=== PATIENT | female | born 1960 | race Caucasian/White ===

== ENCOUNTER 2020-01-22 14:32 | Outpatient (CLI) | payer OTHER, SELFPAY ==
--- NOTE | ~2020-01-22 | MM_ITS ---
EXAMINATION: MM screening [facility] BI w wojciech HISTORY: Screening mammogram TECHNIQUE: Craniocaudal and mediolateral oblique 3-D tomosynthesis images were obtained and synthetic 2-D images were generated. CAD analysis was submitted and interpreted. COMPARISON: Comparison to multiple prior studies sequentially, with oldest reviewed study dated 04/09. BREAST PARENCHYMAL COMPOSITION: The breasts are extremely dense, which lowers the sensitivity of mamm ography. FINDINGS: There is no evidence of suspicious mass, calcification, or architectural distortion to sugg est malignancy in either breast. There has been no suspicious interval change. IMPRESSION: 1. No mammographic evidence of malignancy. 2. Recommend routine screening mammography in one year. BI-RADS Category 1: Negative Reviewed, dictated and finalized at location A.
== END 2020-01-22 14:33 | disposition home or self-care (01) ==
PROVIDERS: PCP Internal Medicine; Visit Provider Obstetrics & Gynecology
DX: Z12.31 Encounter for screening mammogram for malignant neoplasm of breast (principal)
CPT/HCPCS: 77063; 77067

== ENCOUNTER 2020-02-18 14:02 | Outpatient (CLI) | payer OTHER, SELFPAY ==
--- NOTE | ~2020-02-18 | DEXA_ITS ---
Bone Density Report Name: Mallory Stubbs Age: 59 Sex: Female Ethnicity: White Date of : 1960 Indication: postmenopausal; height loss; Referring Provider: Jose Merrill Study: Bone densitometry was performed. Exam Date: February 18, 2020 Accession number: [id number] Bone Density: Region BMD T-score Z-score Classification AP Spine (L1-L4) 0.866 -1.6 -0.2 Osteopenia Femoral Neck (Left) 0.664 -1.7 -0.3 Osteopenia Total Hip (Left) 0.778 -1.3 -0.3 Osteopenia Total Hip Bilateral Avg 0.766 -1.4 -0.5 Osteopenia Femoral Neck (Right) 0.682 -1.5 -0.2 Osteopenia Total Hip (Right) 0.753 -1.5 -0.6 Osteopenia World Health Organization criteria for BMD impression classify patients as: Normal (T-score at or above -1.0), Osteopenia (T-score between -1.0 and -2.5), or Osteoporosis (T-score at or below -2.5). 10-year Fracture Risk(1): Major Osteoporotic Fracture 7.5% Hip Fracture 0.8% Reported Risk Factors: [place] (), Neck BMD=0.664, BMI=19.9 (1) FRAX(R) Version 3.08. Fracture probability calculated for an untreated patient. Fracture probability may be lower if the patient has received treatment. Clinical Information Provided by Patient: Has used the following medications: Vitamin D, Calcium Patient maximum height was 67.5 Menopause Age: 47 Drinks caffeinated beverages Onset of menses at age 13 Number of children 0 Impression: The patient has low bone mass, based on the Left Femoral Neck T-score. The patient has an estimated ten-year risk of hip fracture of 0.8% and an estimated ten-year risk of major fracture of 7.5%, based on the WHO FRAX algorithm. Discussion: BONE DENSITY IS LOW AT ONE OR MORE SKELETAL SITES. This patient's lowest T-score is low at one or more skeletal sites. It meets the World Health Organization's (WHO) criteria for ?low bone mass? (T-score between -1.0 and -2.5). The patient's 10-year risk of fracture as calculated by FRAX is less than the threshold where pharmacological therapy is recommended by the National Osteoporosis Foundation (NOF). However, all treatment decisions require clinical judgment and consideration of individual patient factors, including patient preferences, comorbidities, previous drug use, risk factors not captured in the FRAX model (e.g., frailty, falls, vitamin D deficiency, increased bone turnover, interval significant decline in bone density) and possible under or overestimation of fracture risk by FRAX. The patient should follow a healthful lifestyle (good nutrition with adequate calcium and vitamin D, and appropriate weight-bearing exercise). Follow-Up: Consider repeating this study in 2 to 3 years to reassess this patient's status, or sooner if there is some new clinical indication. Reported by: PIPPA on 02/18/2020 2:34:00 PM.
== END 2020-02-18 14:03 | disposition home or self-care (01) ==
PROVIDERS: PCP Internal Medicine; Visit Provider Internal Medicine
DX: Z13.820 Encounter for screening for osteoporosis (principal); M85.88 Other specified disorders of bone density and structure, other site; M85.852 Other specified disorders of bone density and structure, left thigh; M85.851 Other specified disorders of bone density and structure, right thigh
CPT/HCPCS: 77080

== ENCOUNTER 2020-12-26 15:28 | Outpatient (CLI) | payer OTHER, SELFPAY | END 2020-12-26 15:29 | disposition home or self-care (01) | LOC: ANHCOVIDVC 15:29 | PROVIDERS: PCP Internal Medicine | DX: Z23 Encounter for immunization (principal) | CPT/HCPCS: 0001A; 91300 ==

== ENCOUNTER 2021-01-16 15:24 | Outpatient (CLI) | payer OTHER, SELFPAY | END 2021-01-16 15:25 | disposition home or self-care (01) | LOC: ANHCOVIDVC 15:25 | PROVIDERS: PCP Internal Medicine | DX: Z23 Encounter for immunization (principal) | CPT/HCPCS: 0002A; 91300 ==

== ENCOUNTER → 2021-03-10 10:41 | Outpatient (CLI) | payer OTHER, SELFPAY ==
--- NOTE | ~2021-03-10 | US_ITS ---
EXAMINATION: US pelvic complete w TV EXAM DATE: 03/10/2021 11:05 INDICATION: Postmenopausal bleeding TECHNIQUE: Pelvic transabdominal and transvaginal sonogram was performed. There are multiple graysca le and Doppler images available for interpretation. There is no prior study for comparison. FINDINGS: Uterus measures 6.6 x 2.5 x 3.4 cm, and is morphologically normal. There is fluid within t he endometrial fundus and endometrium at this location measuring about 6 mm, and there is hypoechoic region, fluid suspected within the lower uterine segment endometrial canal up to about 8 mm in thickn ess. There is no free pelvic fluid. Right adnexa: The ovary is not identified. There is no adnexal mass. Left adnexa: The ovary is not identified. There is no adnexal mass. IMPRESSION: Endometrial, lower uterine segment fluid. Endometrial measurement upper limits of normal. If symptoms persist consider histologic correlation. Reviewed, dictated and finalized at location A. IMPRESSION: Endometrial, lower uterine segment fluid. Endometrial measurement u pper limits of normal. If symptoms persist consider histologic correlation.
== END ==
PROVIDERS: PCP Internal Medicine; Visit Provider Obstetrics & Gynecology
DX: N95.0 Postmenopausal bleeding (principal)
CPT/HCPCS: 76830; 76856

== ENCOUNTER 2021-03-11 09:48 | Outpatient (CLI) | payer OTHER, SELFPAY ==
--- NOTE | ~2021-03-11 | MM_ITS ---
EXAMINATION: MM screening [facility] BI w wojciech HISTORY: Screening mammogram TECHNIQUE: Craniocaudal and mediolateral oblique 3-D tomosynthesis images were obtained and synthetic 2-D images were generated. CAD analysis was submitted and interpreted. COMPARISON: 01/22/2020, 11/22/2018, 09/07/2017 BREAST PARENCHYMAL COMPOSITION: The breasts are extremely dense, which lowers the sensitivity of mamm ography. FINDINGS: There is no evidence of suspicious mass, calcification, or architectural distortion to sugg est malignancy in either breast. There has been no suspicious interval change. IMPRESSION: 1. No mammographic evidence of malignancy. 2. Recommend routine screening mammography in one year. BI-RADS Category 1: Negative Reviewed, dictated and finalized at location A.
== END 2021-03-11 09:49 | disposition home or self-care (01) ==
LOC: ANHIMG 09:50
PROVIDERS: PCP Internal Medicine; Visit Provider Obstetrics & Gynecology
DX: Z12.31 Encounter for screening mammogram for malignant neoplasm of breast (principal)
CPT/HCPCS: 77063; 77067

== ENCOUNTER 2021-04-01 03:16 | Day surgery (SDC) | payer OTHER, SELFPAY ==
[2021-03-25 09:53] VITALS: BMI 19.6
--- NOTE | 2021-04-01 12:09 | PM.IMHP ---
H&P: HPI History of Present Illness Date/Time: 04/01/21 12:09 61-year-old 0 female presents for 1 episode of vaginal bleeding 2 months ago. At that time ultrasound was performed which showed abnormality in the cavity but she has had no further bleeding. Options were discussed regarding monitoring with repeat imaging versus tissue sampling and we with the proceeding with tissue sampling. Chief Complaint: Postmenopausal bleeding Review of Systems Review of Systems: All systems reviewed & are unremarkable except as noted in HPI and below PMFSH Past Medical History Medical History (Updated 04/01/21 @ 12:12 by Shan Graves MD) Arthritis Goiter Thyroid disease Surgical History Surgical History H/O thyroidectomy Family History Family History Mother Patient's mother is Heart disease Father Patient's father is Heart disease Social History Social History Smoking status: Never smoker Second hand tobacco smoke exposure: No Alcohol intake: current Substance use: never Living arrangements: with family Sexual Orientation (if Verbalized by the Patient): Straight or Heterosexual Spiritual care concerns: No Meds Home Medications and Allergies Home Medications Medication Instructions Recorded Confirmed Type estradiol-norethindrone acet 1 1 tablet PO DAILY 05/19/20 03/25/21 History mg-0.5 mg tablet levothyroxine 50 mcg capsule 50 mcg PO DAILY 05/19/20 03/25/21 History meloxicam 15 mg tablet 15 mg PO DAILY #90 tablet 05/19/20 03/25/21 Rx calcium citrate-vitamin D3 1 tablet PO BID 03/25/21 03/25/21 History [Calcium Citrate + D] multivit with min-folic acid 282 tablet PO DAILY 03/25/21 03/25/21 History [Adult One Daily Gummies] Allergies Allergy/AdvReac Type Severity Reaction Status Date / Time No Known Allergies Allergy Unverified 05/19/20 14:38 Exam Const: General: cooperative and healthy appearing Resp: Effort & Inspection: normal respiratory effort Auscultation: clear to auscultation bilaterally Cardio: Rate: regular rate GI: Inspection: normal to inspection : Speculum Exam - Vagina: normal appearance of the vagina Speculum Exam - Cervix: normal appearance of the cervix Bimanual exam- vagina & uterus: normal bimanual exam Bimanual Exam- Adnexa, other: normal adnexae Assessment and Plan Assessment and plan (1) Postmenopausal bleeding: Code(s): N95.0 - Postmenopausal bleeding Status: Acute Additional Plan proceed with hysteroscopy and tissue sampling.
--- NOTE | 2021-04-01 12:12 | WPDHPUPDATE1 ---
History and Physical Update Update Date/Time: 04/01/21 12:12 History and Physical has been reviewed, including an updated exam of the patient. There are NO changes in the patient's condition. Risks, benefits, and alternatives have been discussed and questions answered. Patient agrees to proceed with procedure.
[2021-04-01] MEDS: LACTATED RINGERS 1,000 ML 30 ML IV CONT (12:54)
[2021-04-01 12:55] VITALS: BP 147/79; PULSE 92; RESP 14; TEMP 36.8; O2SAT 100; BMI 19.5
[2021-04-01] MEDS: ACETAMINOPHEN 500 MG TABLET 1000 MG PO (12:55)
--- NOTE | 2021-04-01 13:37 | WPDANESEPPF ---
Anes - Initial Pre Proc Eval Procedure: Operation Date: 04/01/21 14:00 Proposed Procedures p Hysteroscopy, Dilation and Curettage - Shan Graves MD Date/Time: 04/01/21 13:37 Surgeon: Shan Graves MD Pre Op Diagnosis: post menopausal bleeding Patient Data Age: 61 Gender: F Height: 1.7 m Weight: 56.7 kg Last Vital Signs Temp 36.8 C 04/01/21 12:55 Pulse 92 04/01/21 12:55 Resp 14 04/01/21 12:55 BP 147/79 H 04/01/21 12:55 Pulse Ox 100 04/01/21 12:55 Allergies Allergy/AdvReac Type Severity Reaction Status Date / Time No Known Allergies Allergy Verified 04/01/21 12:37 Home Medications Medication Instructions Recorded Confirmed Type estradiol-norethindrone acet 1 1 tablet PO DAILY 05/19/20 03/25/21 History mg-0.5 mg tablet levothyroxine 50 mcg capsule 50 mcg PO DAILY 05/19/20 04/01/21 History meloxicam 15 mg tablet 15 mg PO DAILY #90 tablet 05/19/20 03/25/21 Rx calcium citrate-vitamin D3 1 tablet PO BID 03/25/21 03/25/21 History [Calcium Citrate + D] multivit with min-folic acid 282 tablet PO DAILY 03/25/21 03/25/21 History [Adult One Daily Gummies] Patient hx anesthesia problems: none Family hx anesthesia problems: none PMFSH Past Medical History Medical History Arthritis Goiter Thyroid disease Surgical History Surgical History H/O thyroidectomy Family History Family History Mother Patient's mother is Heart disease Father Patient's father is Heart disease Social History Social History Smoking status: Never smoker Second hand tobacco smoke exposure: No Alcohol intake: current Substance use: never Living arrangements: with family Sexual Orientation (if Verbalized by the Patient): Straight or Heterosexual Spiritual care concerns: No Anes - Eval Final PreProcedure Day of Procedure 04/01/21 13:37 Patient weight: normal Heart: regular rate and rhythm Lungs: clear to auscultation Airway: Mallampati scale class II Neurological: alert and oriented Last oral intake: >/= 8 hours ASA classification: II Emergent: no Anesthetic plan: proceed Anesthesia type and monitoring: general GIVS and standard monitoring Informed Consent: The patient's anesthetic plan and its attendant risks and benefits were discussed with the patient/family/POA. Questions were solicited and answers provided to the satisfaction of the patient/family/POA.
--- NOTE | 2021-04-01 14:46 | PM.OP ---
Procedure Note - Brief Procedure Note - Brief Date of procedure: 04/01/21 Pre-op diagnosis: post menopausal bleeding Post-op diagnosis: same Procedure performed: Hysteroscopy with uterine curettings Description of procedure: Patient prepped and draped in usual manner for this procedure. Cervix was dilated to allow hysteroscope to be placed. This revealed atrophic cavity with no abnormalities noted. Curettings were obtained though scant amount of tissue was present. This point seizure was considered terminated. Anesthesia: MAC Surgeon: Shan Graves MD Drains: No Packing: No Pathology: yes Complications: No immediate complications Condition: stable Disposition: PACU Findings: atrophic endometrial cavity
[2021-04-01 14:50] VITALS: BP 123/79; PULSE 82; RESP 16; O2SAT 99
[2021-04-01 15:15] VITALS: BP 130/79; PULSE 74; RESP 16
[2021-04-01 15:49] VITALS: BP 135/75; PULSE 72; RESP 16
== END 2021-04-01 15:51 | disposition home or self-care (01) ==
PROVIDERS: PCP Internal Medicine; Visit Provider Obstetrics & Gynecology
PROC: 0U5B8ZZ Destruction of Endometrium, Via Natural or Artificial Opening Endoscopic (ICD-10-PCS; CPT 58563; principal; 2021-04-01 14:00)
DX: N95.0 Postmenopausal bleeding (principal); E89.0 Postprocedural hypothyroidism
CPT/HCPCS: 58558; 88305; A9270; J1100; J2250; J2405; J2704; J3010; J7030; J7120

== ENCOUNTER → 2021-06-08 11:00 | Outpatient (CLI) | payer OTHER, SELFPAY ==
--- NOTE | ~2021-06-08 | XR_ITS ---
XR elbow LT min 3V DATE: 06/08/2021 14:10 INDICATION: Left elbow pain TECHNIQUE: 4 views COMPARISON: None FINDINGS: No fracture or dislocation or joint effusion. No periosteal reaction or bone destruction. IMPRESSION: Negative Reviewed, dictated and finalized at location B. IMPRESSION: Negative
--- NOTE | ~2021-06-08 | XR_ITS ---
XR lumbar spine 2-3V DATE: 06/08/2021 14:10 INDICATION: Back pain TECHNIQUE: AP, lateral, coned lateral lumbosacral views COMPARISON: None FINDINGS: There is diffuse osteopenia. There is rotatory dextroscoliosis of the lower thoracic and lumbar spine measuring 22 degrees measure d from T12 to L3. The lumbar vertebrae are normally aligned. No fracture or bone destruction is evident. The included l ower thoracic and lumbar pedicles are intact. There is multilevel degenerative disc disease, severe at L2-3, moderate at L4-5. IMPRESSION: Diffuse osteopenia Rotatory dextroscoliosis Degenerative disc disease, most pronounced at L2-3 Reviewed, dictated and finalized at location B.
--- NOTE | ~2021-06-08 | XR_ITS ---
XR_CERV2-3V_CR DATE: 06/08/2021 14:10 INDICATION: Neck pain TECHNIQUE: AP, open-mouth, lateral views COMPARISON: None FINDINGS: C1 and C2 are normally aligned and the odontoid process is intact. No fracture or dislocati on or locked facet or prevertebral soft tissue swelling. There is moderate loss of interspace height at C4-5. Moderately severe degenerative disc disease and mild retrolisthesis at C5-6. There is uncovertebral joint spurring at C5-6. There is degenerative change at the apophyseal joints. IMPRESSION: Degenerative disc disease at C4-5 and to a greater extent C5-6, with mild retrolisthesis at C5-6 Uncovertebral joint spurring at C5-6; degenerative change at the apophyseal joints Reviewed, dictated and finalized at Location A. Reviewed, dictated and finalized at location B. IMPRESSION: Degenerative disc disease at C4-5 and to a greater extent C5-6, wit h mild retrolisthesis at C5-6 Uncovertebral joint spurring at C5-6; degenerative change at the apophyseal leslie nts
== END ==
PROVIDERS: PCP Internal Medicine; Visit Provider Internal Medicine
DX: M47.816 Spondylosis without myelopathy or radiculopathy, lumbar region (principal); M41.9 Scoliosis, unspecified; M47.812 Spondylosis without myelopathy or radiculopathy, cervical region; M25.522 Pain in left elbow
CPT/HCPCS: 72040; 72100; 73080

== ENCOUNTER 2021-06-26 09:31 | Outpatient (CLI) | payer OTHER, SELFPAY ==
[2021-06-26 09:50] LABS: Basophils Absolute Auto 0.1 K/mm3 (0.0-0.1); Basophils Percent Auto 1.1 % (0.2-1.2); Eosinophils Absolute Auto 0.2 K/mm3 (0-0.3); Hematocrit 45.3 % (37.0-47.0); Hemoglobin 14.7 g/dL (12.0-15.0); Immature Granulocyte Absolute 0.01 K/mm3 (0.00-0.031); Immature Granulocyte Percent A 0.2 % (0-0.5); Lymphocytes Absolute Auto 1.73 K/mm3 (0.9-3.2); Lymphocytes Percent Auto 39.3 % (18.3-44.2); Mean Corpuscular HGB Conc 32.5 g/dl (32-36); Mean Corpuscular Hemoglobin 31.2 pg (26-34); Mean Corpuscular Volume 96.2 fl (80-100); Mean Platelet Volume 9.8 fl (7.4-10.4); Monocytes Absolute Auto 0.3 K/mm3 (0.1-0.6); Monocytes Percent Auto 6.4 % (2.6-8.5); Neutrophils Absolute Auto 2.1 K/mm3 (1.3-6.7); Platelet Count Result 238 k/mm3 (150-375); Red Blood Count 4.71 M/mm3 (4.2-5.4); Red Cell Distribution Width 12.8 % (11.5-14.5); White Blood Count 4.4 K/mm3 (4.5-10.0)
[2021-06-26 10:05] LABS: Alanine Aminotransferase 14 U/L (4-35); Albumin Level 4.4 g/dL (3.5-5.1); Alkaline Phosphatase 47 U/L (38-126); Anion Gap 6 mmol/L (8-16); Aspartate Amino Transferase 23 U/L (14-36); Bilirubin,Total 0.7 mg/dL (0.2-1.3); Blood Urea Nitrogen 14 mg/dL (7-17); Calcium 8.8 mg/dL (8.4-10.2); Carbon Dioxide 28 mmol/L (22-30); Chloride 106 mmol/L (98-107); Cholesterol 216 mg/dL (0-200); Estimated Glomerular Filt Rate > 60; Glucose 105 mg/dL (65-110); HDL Direct 57 mg/dL; Potassium 4.3 mmol/L (3.4-5.0); Sodium 140 mmol/L (137-145); Triglycerides 104 mg/dL (<150)
[2021-06-26 10:16] LABS: LDL Cholesterol Direct 131 mg/dL
[2021-06-26 14:10] LABS: Free T4 Free Thyroxine 1.36 ng/mL (0.78-2.19); Vitamin D 25 Hydroxy 62.9 ng/mL
== END 2021-06-26 09:32 | disposition home or self-care (01) ==
PROVIDERS: PCP Internal Medicine; Visit Provider Internal Medicine
DX: Z00.00 Encounter for general adult medical examination without abnormal findings (principal); E03.9 Hypothyroidism, unspecified; R79.89 Other specified abnormal findings of blood chemistry
CPT/HCPCS: 36415; 80053; 80061; 82306; 84439; 84443; 85025

== ENCOUNTER 2021-08-24 16:30 | Outpatient (RCR) | payer OTHER, SELFPAY ==
--- NOTE | 2021-06-29 13:44 | PTOPEVAL ---
PHYSICAL THERAPY EVALUATION AND PLAN OF CARE Thank you for referring Mallory Stubbs to [facility].? The patient is scheduled to be seen for therapy?1x/week for 5 weeks. Please review, sign, date and return this plan of care EMILY. I agree with and certify that the following plan of care is medically necessary. Referring Physician Date Attending Provider: Jose Merrill, DO Evaluation Outpatient Past Medical History Musculoskeletal History Hx Arthritis Yes Endocrine History Hx Thyroidectomy Yes: subtotal 1993 HEENT History Hx Tonsillectomy Yes: 1979 Hx Deviated Septum Yes: 1979 Hx Other HEENT Disorders Yes: adenoidectomy 1979 Integumentary History Hx Skin Disorders No Significant History Reproductive History Hx Other Reproductive Disorders Yes: post menopausal bleeding Diagnosis low back pain, cervical pain Onset chronic Subjective Information States that the back pain is Query Text:As Reported By Patient/ newer in the last couple of Family months - states that she feels very stiff and tight and 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 States that her neck pain is more chronic - states that she sometimes feels tired to hold her head up. There is pain right up at the top of the neck. Reports that exercising her shoulder helps her to feel better. Self Report Pain Assessment Bilateral Spine, Cervical Reported Pain Level 5 Pain Description Aching Pain Frequency Chronic,Continuous Lowest Pain Intensity 5 Greatest Pain Intensity 5 Pain Aggravating Factors None Spine, Lumbar Reported Pain Level 5 Pain Description Aching,Tightness Pain Frequency Acute,Continuous Lowest Pain Intensity 4 Greatest Pain Intensity 8 Pain Aggravating Factors Bending Pain Behaviors Guarding Pain Score Pain Score 5,5: Self Report Interventions Used Interventions Used By Clinicians Exercise,Manual Therapy Techniques Pain Relief Interventions Used By Exercise,Heat Patient Cervical and Lumbar ROM Cervical ROM Cervical Flexion (0-60) 40 Query Text:Active in Degrees Cervical Extension (0-70) 40 Query Text:Active in Degrees Cervical Rotation
--- NOTE | 2021-08-03 09:44 | PTOPEVAL ---
PHYSICAL THERAPY PROGRESS REPORT Thank you for referring Mallory Stubbs to [facility].? Mallory and I are going to revisit in 3 weeks and assess HEP and determine further plans at that time. Please review, sign, date and return this plan of care EMILY. I agree with and certify that the following plan of care is medically necessary. Referring Physician Date Attending Provider: Jose Merrill, DO Progress Diagnosis low back pain, cervical pain Onset chronic Subjective Information Mallory reports that her neck Query Text:As Reported By Patient/ really feels 'about the same.' Family There is a lot of stiffness in the neck that is persistent . Thinks that maybe the headaches are reduced in frequency. Her low back pain overall is improved, but more than that she describes a significant improvement in her posture and overall strength. she feels like she is more aware of her deficits and of the things she needs to do at home. Mallory is very consistent with HEP. Self Report Pain Assessment Bilateral Spine, Cervical Reported Pain Level 5 Pain Description Aching Pain Frequency Chronic,Continuous Lowest Pain Intensity 5 Greatest Pain Intensity 5 Pain Aggravating Factors None Spine, Lumbar Reported Pain Level 5 Pain Description Aching,Tightness Pain Aggravating Factors Bending Pain Behaviors Guarding Pain Score Pain Score 5,5: Self Report Interventions Used Interventions Used By Clinicians Exercise,Manual Therapy Techniques Pain Relief Interventions Used By Exercise,Heat Patient Cervical and Lumbar ROM Cervical ROM Cervical Flexion (0-60) 40 Query Text:Active in Degrees Cervical Extension (0-70) 45 Query Text:Active in Degrees Cervical Rotation Right (0-90) 50 Query Text:Active in Degrees Cervical Rotation Left (0-90) 50 Query Text:Active in Degrees Lumbar ROM Lumbar Flexion Active Ankle Query Text:Hands to: Lumbar Extension (0-40) 13 Query Text:Active in Degrees Lateral Rotation Right (0-45) 30 Query Text:Active in Degrees Lateral Rotation Left (0-45) 30 Query Text:Active in Degrees Lower Extremity Muscle Strength Testing Hip Strength Bilateral Hip Flex
--- NOTE | 2021-08-24 17:07 | PTOPEVAL ---
PHYSICAL THERAPY DISCHARGE NOTE Thank you for referring Mallory Stubbs to [facility]. Please review, sign, date and return this plan of care EMILY. I agree with and certify that the following plan of care is medically necessary. Referring Physician Date Attending Provider: Jose Merrill, DO Discharge Diagnosis low back pain, cervical pain Onset chronic Subjective Information Mallory reports that she contiues Query Text:As Reported By Patient/ to feel about the same. Family She has been having a left lower back pain for the last couple of days that has been very aggravating Self Report Pain Assessment Bilateral Spine, Cervical Reported Pain Level 5 Pain Description Aching Pain Frequency Chronic,Continuous Lowest Pain Intensity 5 Greatest Pain Intensity 5 Pain Aggravating Factors None Spine, Lumbar Reported Pain Level 5 Pain Description Aching,Tightness Pain Aggravating Factors Bending Pain Behaviors Guarding Pain Score Pain Score 5,5: Self Report Interventions Used Interventions Used By Clinicians Exercise,Manual Therapy Techniques Cervical and Lumbar ROM Cervical ROM Cervical Flexion (0-60) 45 Query Text:Active in Degrees Cervical Extension (0-70) 50 Query Text:Active in Degrees Cervical Rotation Right (0-90) 70 Query Text:Active in Degrees Cervical Rotation Left (0-90) 60 Query Text:Active in Degrees Lumbar ROM Lumbar Flexion Active Ankle Query Text:Hands to: Lumbar Extension (0-40) 13 Query Text:Active in Degrees Lateral Rotation Right (0-45) 30 Query Text:Active in Degrees Lateral Rotation Left (0-45) 30 Query Text:Active in Degrees Lower Extremity Muscle Strength Testing Hip Strength Bilateral Hip Flexion Strength 5 Normal Hip Extension Strength 4 Good Hip Abduction Strength 4 Good Knee Strength Bilateral Knee Flexion Strength 5 Normal Knee Extension Strength 5 Normal Upper Extremity Muscle Strength Testing Scapular/Shoulder Bilateral Shoulder Flexion Strength 5 Normal Shoulder Extension Strength 5 Normal Shoulder Abduction Strength 5 Normal Shoulder Medial Rotation Strength 5 Normal Shoulder Lateral Rotation Strength 5 Normal General Exercise General Exercises Exercise Location shoulders, core, glutes Exercise Type Active,Resistive,Stretching Exercise Description laraing hip abduction SLR Query Text:Record Sets, Re
== END 2021-08-25 08:13 | disposition home or self-care (01) ==
LOC: ANHPT 16:30
PROVIDERS: PCP Internal Medicine; Visit Provider Internal Medicine
DX: M54.2 Cervicalgia (principal); M54.9 Dorsalgia, unspecified; G89.29 Other chronic pain
CPT/HCPCS: 97110; 97140; 97163

== ENCOUNTER 2022-04-01 10:15 | Outpatient (CLI) | payer OTHER, SELFPAY ==
--- NOTE | ~2022-04-01 | MM_ITS ---
EXAMINATION: MM screening [facility] BI w wojciech HISTORY: Screening TECHNIQUE: Craniocaudal and mediolateral oblique 3-D tomosynthesis images were obtained and synthetic 2-D images were generated. CAD analysis was submitted and interpreted. COMPARISON: Comparison to multiple prior studies sequentially, with oldest reviewed study dated 09/2015. BREAST PARENCHYMAL COMPOSITION: The breasts are extremely dense, which lowers the sensitivity of mamm ography FINDINGS: There is no evidence of suspicious mass, calcification, or architectural distortion to sugg est malignancy in either breast. There has been no suspicious interval change. IMPRESSION: 1. No mammographic evidence of malignancy. 2. Recommend routine screening mammography in one year. BI-RADS Category 1: Negative Reviewed, dictated and finalized at location A.
== END 2022-04-01 10:16 | disposition home or self-care (01) ==
LOC: ANHIMG 10:17
PROVIDERS: PCP Internal Medicine; Visit Provider Obstetrics & Gynecology
DX: Z12.31 Encounter for screening mammogram for malignant neoplasm of breast (principal)
CPT/HCPCS: 77063; 77067

== ENCOUNTER 2022-05-14 00:43 | Day surgery (SDC) | payer OTHER, SELFPAY ==
--- NOTE | 2022-05-13 09:52 | P.PNAN_ITS ---
Anes - Initial Pre Proc Eval Procedure: Operation Date: 05/14/22 09:15 Proposed Procedures p Esophagogastroduodenoscopy & Screening Colonoscopy - Meliton Frias MD Date/Time: 05/13/22 09:52 Surgeon: Meliton Frias MD Pre Op Diagnosis: neoplasm screening, GERD Patient Data Age: 62 Gender: F Height: 1.7 m Weight: 58 kg Allergies Allergy/AdvReac Type Severity Reaction Status Date / Time No Known Allergies Allergy Verified 05/14/22 07:50 Home Medications Medication Instructions Recorded Confirmed Type calcium citrate 315 mg-vitamin D3 1 tablet PO BID 03/25/21 04/30/22 History 5 mcg (200 unit) tablet (Calcium Citrate + D) multivitamin with minerals-folic 282 tablet PO DAILY 03/25/21 04/30/22 History acid 200 mcg chewable tablet (Adult One Daily Gummies) levothyroxine 50 mcg tablet 50 mcg PO DAILY #90 tabs 03/26/22 04/30/22 Rx estradiol-norethindrone acet 1 0.5 tablet PO DAILY #84 tabs 04/06/22 04/30/22 Rx mg-0.5 mg tablet (Activella) meloxicam 15 mg tablet 15 mg PO DAILY #90 tabs 04/07/22 04/30/22 Rx Patient hx anesthesia problems: none Family hx anesthesia problems: none Results Review: All pre-operative results and documents have been reviewed as part of the pre- operative evaluation. [facility] Past Medical History Medical History (Updated 05/14/22 @ 06:55 by Meliton Frias MD) Arthritis Goiter Menopausal state Thyroid disease Surgical History Surgical History H/O right breast biopsy Benign H/O thyroidectomy History of hysteroscopy (04/01/21) Hscope D&C Family History Family History Mother Patient's mother is Heart disease Father Patient's father is Heart disease Social History Social History (Updated 04/06/22 @ 08:37 by NANDINI Alvarado) Smoking status: Never smoker Second hand tobacco smoke exposure: No Alcohol intake: current Alcohol use details: 1 x month Substance use: never Substance use type: does not use Living arrangements: with family Additional living arrangements comments: Gender identity (if verbalized by the patient): Female Sexual Orientation (if Verbalized by the Patient): Straight or Heterosexual Spiritual care concerns: No Anes - Eval Final PreProcedure Day of Procedure 05/13/22 09:52 Patient weight: normal Heart: regular rate and rhythm Lungs: clear to auscultation and normal air movement Airway: Mallampati scale class 1 Neurological: alert and oriented Last oral intake: >/= 8 hours ASA classification: II Emergent: no Anesthetic plan: proceed Anesthesia type and monitoring: general GIVS and standard monitoring Results Review: All pre-operative results and documents have been reviewed as part of the pre- operative evaluation. Informed Consent: The patient's anesthetic plan and its attendant risks and benefits were discussed with the patient/family/POA. Questions were solicited and answers provided to the satisfaction of the patient/family/POA.
--- NOTE | 2022-05-14 06:54 | PM.HPGS ---
History of Present Illness History of Present Illness Consent: Risks, benefits, and alternatives have been discussed and questions answered. Patient agrees to proceed with procedure. Chief complaint: neoplasm screening, GERD Narrative: Mallory Stubbs is a 62 year old female Referred for colon cancer screening. Her last colonoscopy was 10 years ago. She also has had early satiety and reflux symptoms. Review of Systems Review of Systems: All systems reviewed & are unremarkable except as noted in HPI and below PMFSH Past Medical History Medical History Arthritis Goiter Menopausal state Thyroid disease Surgical History Surgical History H/O right breast biopsy Benign H/O thyroidectomy History of hysteroscopy (04/01/21) Hscope D&C Family History Family History Mother Patient's mother is Heart disease Father Patient's father is Heart disease Social History Social History Smoking status: Never smoker Second hand tobacco smoke exposure: No Alcohol intake: current Alcohol use details: 1 x month Substance use: never Substance use type: does not use Living arrangements: with family Additional living arrangements comments: Gender identity (if verbalized by the patient): Female Sexual Orientation (if Verbalized by the Patient): Straight or Heterosexual Spiritual care concerns: No Meds Home Medications and Allergies Home Medications Medication Instructions Recorded Confirmed Type calcium citrate 315 mg-vitamin D3 1 tablet PO BID 03/25/21 04/30/22 History 5 mcg (200 unit) tablet (Calcium Citrate + D) multivitamin with minerals-folic 282 tablet PO DAILY 03/25/21 04/30/22 History acid 200 mcg chewable tablet (Adult One Daily Gummies) levothyroxine 50 mcg tablet 50 mcg PO DAILY #90 tabs 03/26/22 04/30/22 Rx estradiol-norethindrone acet 1 0.5 tablet PO DAILY #84 tabs 04/06/22 04/30/22 Rx mg-0.5 mg tablet (Activella) meloxicam 15 mg tablet 15 mg PO DAILY #90 tabs 08/10/22 09/02/22 Rx Allergies Allergy/AdvReac Type Severity Reaction Status Date / Time No Known Allergies Allergy Verified 05/14/22 07:50 Exam Const: General: alert Orientation/consciousness: patient oriented x3 Resp: Auscultation: clear to auscultation bilaterally Cardio: Rate: regular rate Rhythm: regular rhythm GI: GI Palp: Yes Soft to palpation and No Tenderness to palpation present (GI) Neuro: General: patient oriented x3 Assessment and Plan Assessment and plan (1) Colon cancer screening: Code(s): Z12.11 - Encounter for screening for malignant neoplasm of colon Status: Acute Assessment and Plan: Colonoscopy with possible biopsy or polypectomy or cautery or injection of substances. (2) Early satiety: Code(s): R68.81 - Early satiety Status: Acute Assessment and Plan: EGD with possible biopsy or dilatation or cautery.
[2022-05-14 07:51] VITALS: BP 123/93; PULSE 91; RESP 20; TEMP 36.6; O2SAT 100
[2022-05-14] MEDS: LACTATED RINGERS 1,000 ML 150 ML IV CONT (08:00)
--- NOTE | 2022-05-14 09:25 | SUR.OPER ---
EGD ended at 916. Colonoscopy started at 924.
[2022-05-14 09:43] VITALS: BP 141/84; PULSE 88; RESP 22; O2SAT 100
[2022-05-14 09:53] VITALS: BP 136/83; PULSE 88; RESP 20; O2SAT 100
[2022-05-14 10:03] VITALS: BP 152/76; PULSE 83; RESP 20; O2SAT 100
--- NOTE | 2022-05-14 12:07 | SUR.PHASEII ---
DR. PEARCE NOTIFIED OF POSITIVE H. PYLORI. NO FURTHER ORDERS RECOMMENDED AT THIS TIME.
== END 2022-05-14 10:09 | disposition home or self-care (01) ==
PROVIDERS: PCP Internal Medicine; Visit Provider Internal Medicine Gastroenterology
PROC: 0DJ08ZZ Inspection of Upper Intestinal Tract, Via Natural or Artificial Opening Endoscopic (ICD-10-PCS; CPT 43235; principal; 2022-05-14 09:15)
DX: Z12.11 Encounter for screening for malignant neoplasm of colon (principal); K21.00 Gastro-esophageal reflux disease with esophagitis, without bleeding; M19.90 Unspecified osteoarthritis, unspecified site; E89.0 Postprocedural hypothyroidism; R68.81 Early satiety
CPT/HCPCS: 45378; 43239; 87081; 88305; J2704; J7120

== ENCOUNTER 2022-06-23 08:34 | Outpatient (CLI) | payer OTHER, SELFPAY ==
[2022-06-23 09:05] LABS: Basophils Percent Auto 0.9 % (0.2-1.2); Eosinophils Absolute Auto 0.1 K/mm3 (0-0.3); Eosinophils Percent Auto 3.3 % (0-4.4); Hematocrit 44.8 % (37.0-47.0); Hemoglobin 14.6 g/dL (12.0-15.0); Immature Granulocyte Absolute 0.01 K/mm3 (0.00-0.031); Immature Granulocyte Percent A 0.2 % (0-0.5); Lymphocytes Absolute Auto 1.55 K/mm3 (0.9-3.2); Lymphocytes Percent Auto 36.7 % (18.3-44.2); Mean Corpuscular HGB Conc 32.6 g/dl (32-36); Mean Corpuscular Hemoglobin 30.9 pg (26-34); Mean Corpuscular Volume 94.7 fl (80-100); Mean Platelet Volume 9.8 fl (7.4-10.4); Monocytes Absolute Auto 0.3 K/mm3 (0.1-0.6); Monocytes Percent Auto 7.6 % (2.6-8.5); Neutrophils Absolute Auto 2.2 K/mm3 (1.3-6.7); Neutrophils Percent Auto 51.3 % (45.5-73.1); Platelet Count Result 220 k/mm3 (150-375); Red Blood Count 4.73 M/mm3 (4.2-5.4); Red Cell Distribution Width 12.8 % (11.5-14.5); White Blood Count 4.2 K/mm3 (4.5-10.0)
[2022-06-23 09:16] LABS: Alanine Aminotransferase 17 U/L (6-35); Albumin Level 4.6 g/dL (3.5-5.1); Alkaline Phosphatase 54 U/L (38-126); Anion Gap 10 mmol/L (8-16); Aspartate Amino Transferase 30 U/L (14-36); Bilirubin,Total 0.7 mg/dL (0.2-1.3); Blood Urea Nitrogen 12 mg/dL (7-17); Calcium 8.7 mg/dL (8.4-10.2); Carbon Dioxide 26 mmol/L (22-30); Chloride 106 mmol/L (98-107); Cholesterol 232 mg/dL (0-200); Estimated Glomerular Filt Rate > 60; Glucose 106 mg/dL (65-110); HDL Direct 44 mg/dL; Magnesium 2.2 mg/dL (1.6-2.3); Potassium 4.6 mmol/L (3.4-5.0); Sodium 142 mmol/L (137-145); Triglycerides 126 mg/dL (<150)
[2022-06-23 09:27] LABS: LDL Cholesterol Direct 148 mg/dL
[2022-06-23 10:07] LABS: Free T4 Free Thyroxine 1.31 ng/mL (0.78-2.19)
[2022-06-23 10:34] LABS: Folic Acid > 20.0 ng/mL (2.76->20)
== END 2022-06-23 08:35 | disposition home or self-care (01) ==
LOC: ANHLAB 08:36
PROVIDERS: PCP Internal Medicine; Visit Provider Internal Medicine
DX: E03.9 Hypothyroidism, unspecified (principal); E78.5 Hyperlipidemia, unspecified; R53.83 Other fatigue; R79.0 Abnormal level of blood mineral
CPT/HCPCS: 36415; 80053; 80061; 82607; 82746; 83735; 84439; 84443; 85025

== ENCOUNTER 2022-06-30 07:47 | Outpatient (CLI) | payer OTHER, SELFPAY ==
--- NOTE | ~2022-06-30 | DEXA_ITS ---
Bone Density Report Name: PANKAJ MARTIN Age: 62 Sex: Female Ethnicity: White Date of : 1960 Indication: osteopenia; postmenopausal Referring Provider: ALLIE CROWLEY Study: Bone densitometry was performed. Exam Date: June 30, 2022 Accession number: [id number] Bone Density: Region BMD T-score Z-score Classification AP Spine(L1-L4) 0.907 -1.3 0.4 Osteopenia Femoral Neck (Left) 0.722 -1.1 0.3 Osteopenia Total Hip (Left) 0.778 -1.3 -0.2 Osteopenia Femoral Neck (Right) 0.712 -1.2 0.2 Osteopenia Total Hip (Right) 0.758 -1.5 -0.4 Osteopenia Total Hip Mean 0.768 -1.4 -0.3 Osteopenia World Health Organization criteria for BMD impression classify patients as: Normal (T-score at or above -1.0), Osteopenia (T-score between -1.0 and -2.5), or Osteoporosis (T-score at or below -2.5). 10-year Fracture Risk(1): Major Osteoporotic Fracture 7.0% Hip Fracture 0.6% Reported Risk Factors: [place] (), Neck BMD=0.712, BMI=19.8 (1) FRAX(R) Version 3.08. Fracture probability calculated for an untreated patient. Fracture probability may be lower if the patient has received treatment. Previous Exams: Region Exam Age BMD T-score BMD Change BMD Change Date g/cm2 vs Baseline vs Previous AP Spine (L1-L4) 06/30/2022 62 0.907 -1.3 0.042 (4.8%)* 0.042 (4.8%)* 02/18/2020 59 0.866 -1.6 Total Hip(Left) 06/30/2022 62 0.778 -1.3 0.000 (0.0%) 0.000 (0.0%) 02/18/2020 59 0.778 -1.3 Total Hip(Right) 06/30/2022 62 0.758 -1.5 0.005 (0.6%) 0.005 (0.6%) 02/18/2020 59 0.753 -1.5 *Denotes significance at 95% confidence level, LSC for AP Spine = 0.022 g/cm2, LSC for Total Hip = 0.027 g/cm2 Clinical Information Provided by Patient: Patient maximum height was 68 Menopause Age: 47 Drinks caffeinated beverages Onset of menses at age 13 Number of children 0 Impression: The patient has low bone mass, based on the Right Total Hip T-score. The patient has an estimated ten-year risk of hip fracture of 0.6% and an estimated ten-year risk of major fracture of 7%, based on the WHO FRAX algorithm. No significant bone loss was observed. Discussion: BONE DENSITY IS LOW AT ONE OR MORE SKELETAL SITES. This patient's lowest T-score is low at one or more skeletal sites. It meets the World Health Organization's (WHO) criteria for ?low bone mass? (T-score between -1.0 and -2.5). The patient's 10-year risk of fracture as c
== END 2022-06-30 07:48 | disposition home or self-care (01) ==
PROVIDERS: PCP Internal Medicine; Visit Provider Obstetrics & Gynecology
DX: N95.1 Menopausal and female climacteric states (principal); M85.89 Other specified disorders of bone density and structure, multiple sites
CPT/HCPCS: 77080

== ENCOUNTER 2023-06-21 09:10 | Outpatient (CLI) | payer OTHER, SELFPAY ==
--- NOTE | ~2023-06-21 | MM_ITS ---
EXAMINATION: MM screening medardo BI w wojciech HISTORY: Screening mammogram TECHNIQUE: Craniocaudal and mediolateral oblique 3-D tomosynthesis images were obtained and synthetic 2-D images were generated. CAD analysis was submitted and interpreted. COMPARISON: 03/2022, 03/11/2021, 01/22/2020 bilateral screening mammogram examinations BREAST PARENCHYMAL COMPOSITION: The breasts are extremely dense, which lowers the sensitivity of mamm ography. FINDINGS: There is no evidence of suspicious mass, calcification, or architectural distortion to sugg est malignancy in either breast. There has been no suspicious interval change. IMPRESSION: 1. No mammographic evidence of malignancy. 2. Recommend routine screening mammography in one year. BI-RADS Category 1: Negative Reviewed, dictated and finalized at location A.
== END 2023-06-21 09:11 | disposition home or self-care (01) ==
PROVIDERS: PCP Internal Medicine; Visit Provider Obstetrics & Gynecology
DX: Z12.31 Encounter for screening mammogram for malignant neoplasm of breast (principal)
CPT/HCPCS: 77063; 77067

== ENCOUNTER 2023-06-28 08:10 | Outpatient (CLI) | payer OTHER, SELFPAY ==
[2023-06-28 09:11] LABS: Alanine Aminotransferase 14 U/L (6-35); Albumin Level 4.4 g/dL (3.5-5.1); Alkaline Phosphatase 50 U/L (38-126); Anion Gap 5 mmol/L (8-16); Aspartate Amino Transferase 28 U/L (14-36); Bilirubin,Total 0.8 mg/dL (0.2-1.3); Blood Urea Nitrogen 16 mg/dL (7-17); Calcium 8.8 mg/dL (8.4-10.2); Carbon Dioxide 27 mmol/L (22-30); Chloride 107 mmol/L (98-107); Cholesterol 210 mg/dL (0-200); Estimated Glomerular Filt Rate > 60; Glucose 93 mg/dL (65-110); HDL Direct 50 mg/dL; Sodium 139 mmol/L (137-145); Triglycerides 68 mg/dL (<150)
[2023-06-28 09:14] LABS: Basophils Percent Auto 0.9 % (0.2-1.2); Eosinophils Absolute Auto 0.2 K/mm3 (0-0.3); Eosinophils Percent Auto 4.4 % (0-4.4); Hematocrit 45.5 % (37.0-47.0); Hemoglobin 14.4 g/dL (12.0-15.0); Immature Granulocyte Absolute 0.01 K/mm3 (0.00-0.031); Immature Granulocyte Percent A 0.2 % (0-0.5); Lymphocytes Absolute Auto 1.93 K/mm3 (0.9-3.2); Lymphocytes Percent Auto 42.1 % (18.3-44.2); Mean Corpuscular HGB Conc 31.6 g/dl (32-36); Mean Corpuscular Hemoglobin 30.3 pg (26-34); Mean Corpuscular Volume 95.6 fl (80-100); Mean Platelet Volume 10.1 fl (7.4-10.4); Monocytes Absolute Auto 0.4 K/mm3 (0.1-0.6); Monocytes Percent Auto 7.6 % (2.6-8.5); Neutrophils Absolute Auto 2.1 K/mm3 (1.3-6.7); Neutrophils Percent Auto 44.8 % (45.5-73.1); Platelet Count Result 249 k/mm3 (150-375); Red Blood Count 4.76 M/mm3 (4.2-5.4); Red Cell Distribution Width 12.9 % (11.5-14.5); White Blood Count 4.6 K/mm3 (4.5-10.0)
[2023-06-28 09:22] LABS: LDL Cholesterol Direct 128 mg/dL
[2023-06-28 09:45] LABS: Free T4 Free Thyroxine 1.36 ng/mL (0.78-2.19); Vitamin D 25 Hydroxy 57.4 ng/mL
[2023-06-28 10:17] LABS: Folic Acid > 20.0 ng/mL (2.76->20)
== END 2023-06-28 08:11 | disposition home or self-care (01) ==
PROVIDERS: PCP Internal Medicine; Visit Provider Physician Assistant
DX: E78.5 Hyperlipidemia, unspecified (principal); R79.89 Other specified abnormal findings of blood chemistry; E03.9 Hypothyroidism, unspecified; R53.83 Other fatigue
CPT/HCPCS: 36415; 80053; 80061; 82306; 82607; 82746; 84439; 84443; 85025

== ENCOUNTER 2024-06-19 07:18 | Outpatient (CLI) | payer OTHER, SELFPAY ==
[2024-06-19 07:56] LABS: Alanine Aminotransferase 10 U/L (6-35); Albumin Level 4.5 g/dL (3.5-5.1); Alkaline Phosphatase 51 U/L (38-126); Anion Gap 8 mmol/L (4-12); Aspartate Amino Transferase 19 U/L (14-36); Bilirubin,Total 0.8 mg/dL (0.2-1.3); Blood Urea Nitrogen 13 mg/dL (7-17); Calcium 8.8 mg/dL (8.4-10.2); Carbon Dioxide 26 mmol/L (22-30); Chloride 108 mmol/L (98-107); Cholesterol 207 mg/dL (0-200); Estimated Glomerular Filt Rate > 60; Glucose 98 mg/dL (65-110); HDL Direct 56 mg/dL; Potassium 4.4 mmol/L (3.4-5.0); Sodium 142 mmol/L (137-145); Triglycerides 91 mg/dL (<150)
[2024-06-19 08:07] LABS: LDL Cholesterol Direct 119 mg/dL
[2024-06-19 08:14] LABS: Basophils Absolute Auto 0.1 K/mm3 (0.0-0.1); Basophils Percent Auto 1.1 % (0.2-1.2); Eosinophils Absolute Auto 0.2 K/mm3 (0-0.3); Hematocrit 45.8 % (37.0-47.0); Hemoglobin 14.6 g/dL (12.0-15.0); Immature Granulocyte Absolute 0.01 K/mm3 (0.00-0.031); Immature Granulocyte Percent A 0.2 % (0-0.5); Lymphocytes Absolute Auto 1.91 K/mm3 (0.9-3.2); Lymphocytes Percent Auto 41.3 % (18.3-44.2); Mean Corpuscular HGB Conc 31.9 g/dl (32-36); Mean Corpuscular Hemoglobin 30.5 pg (26-34); Mean Corpuscular Volume 95.6 fl (80-100); Mean Platelet Volume 9.9 fl (7.4-10.4); Monocytes Absolute Auto 0.3 K/mm3 (0.1-0.6); Monocytes Percent Auto 7.3 % (2.6-8.5); Neutrophils Absolute Auto 2.1 K/mm3 (1.3-6.7); Neutrophils Percent Auto 45.1 % (45.5-73.1); Platelet Count Result 238 k/mm3 (150-375); Red Blood Count 4.79 M/mm3 (4.2-5.4); Red Cell Distribution Width 12.6 % (11.5-14.5); White Blood Count 4.6 K/mm3 (4.5-10.0)
[2024-06-19 09:56] LABS: Vitamin D 25 Hydroxy 53.1 ng/mL
== END 2024-06-19 07:19 | disposition home or self-care (01) ==
LOC: ANHLAB 07:20
PROVIDERS: PCP Internal Medicine; Visit Provider Internal Medicine
DX: Z00.00 Encounter for general adult medical examination without abnormal findings (principal); E55.9 Vitamin D deficiency, unspecified; E03.9 Hypothyroidism, unspecified; E78.5 Hyperlipidemia, unspecified; R53.83 Other fatigue
CPT/HCPCS: 36415; 80053; 80061; 82306; 84443; 85025

== ENCOUNTER 2024-07-10 09:55 | Outpatient (CLI) | payer OTHER, SELFPAY ==
--- NOTE | ~2024-07-10 | MM_ITS ---
EXAMINATION: MM screening medardo BI w wojciech HISTORY: Screening mammogram TECHNIQUE: Craniocaudal and mediolateral oblique 3-D tomosynthesis images were obtained and synthetic 2-D images were generated. CAD analysis was submitted and interpreted. COMPARISON: 06/21/2023, a 422, 03/11/2021 BREAST PARENCHYMAL COMPOSITION:Dense: The breasts are extremely dense, which lowers the sensitivity o f mammography. FINDINGS: No suspicious mass, calcification, or architectural distortion are identified in either zayra ast to suggest malignancy. There has been no suspicious interval change. IMPRESSION: No mammographic evidence of malignancy. Recommend routine screening mammography in one year. BI-RADS Category 1: Negative Reviewed, dictated and finalized at location . R SUPPLY TECHNICIAN
== END 2024-07-10 09:56 | disposition home or self-care (01) ==
LOC: ANHIMG 09:56
PROVIDERS: PCP Internal Medicine; Visit Provider Obstetrics & Gynecology
DX: Z12.31 Encounter for screening mammogram for malignant neoplasm of breast (principal)
CPT/HCPCS: 77063; 77067

== ENCOUNTER 2024-08-06 09:43 | Outpatient (CLI) | payer OTHER, SELFPAY ==
--- NOTE | ~2024-08-06 | DEXA_ITS ---
Bone Density Report Name: PANKAJ MARTIN Age: 64 Sex: Female Ethnicity: White Date of : 1960 Indication: osteopenia; Referring Provider: KISHA SNOW Study: Bone densitometry was performed. Exam Date: August 06, 2024 Accession number: [id number] Bone Density: Region BMD T-score Z-score Classification AP Spine(L1-L4) 0.918 -1.2 0.6 Osteopenia Femoral Neck (Left) 0.677 -1.6 0.0 Osteopenia Total Hip (Left) 0.770 -1.4 -0.2 Osteopenia Femoral Neck (Right) 0.663 -1.7 -0.1 Osteopenia Total Hip (Right) 0.760 -1.5 -0.2 Osteopenia Total Hip Mean 0.765 -1.5 -0.2 Osteopenia World Health Organization criteria for BMD impression classify patients as: Normal (T-score at or above -1.0), Osteopenia (T-score between -1.0 and -2.5), or Osteoporosis (T-score at or below -2.5). 10-year Fracture Risk(1): Major Osteoporotic Fracture 8.1% Hip Fracture 1.0% Reported Risk Factors: [place] (), Neck BMD=0.663, BMI=19.8 (1) FRAX(R) Version 3.08. Fracture probability calculated for an untreated patient. Fracture probability may be lower if the patient has received treatment. Previous Exams: Region Exam Age BMD T-score BMD Change BMD Change Date g/cm2 vs Baseline vs Previous AP Spine (L1-L4) 08/06/2024 64 0.918 -1.2 0.053 (6.1%)* 0.011 (1.2%) 06/30/2022 62 0.907 -1.3 0.042 (4.8%)* 0.042 (4.8%)* 02/18/2020 59 0.866 -1.6 Total Hip(Left) 08/06/2024 64 0.770 -1.4 -0.008 (-1.1%) -0.008 (-1.0%) 06/30/2022 62 0.778 -1.3 0.000 (0.0%) 0.000 (0.0%) 02/18/2020 59 0.778 -1.3 Total Hip(Right) 08/06/2024 64 0.760 -1.5 0.007 (0.9%) 0.002 (0.3%) 06/30/2022 62 0.758 -1.5 0.005 (0.6%) 0.005 (0.6%) 02/18/2020 59 0.753 -1.5 *Denotes significance at 95% confidence level, LSC for AP Spine = 0.022 g/cm2, LSC for Total Hip = 0.027 g/cm2 Clinical Information Provided by Patient: Has used the following medications: Vitamin D, Calcium Patient maximum height was 67 Menopause Age: 47 Drinks caffeinated beverages Onset of menses at age 13 Number of children 0 Impression: The patient has low bone mass, based on the Right Femoral Neck T-score. The patient has an estimated ten-year risk of hip fracture of 1% and an estimated ten-year risk of major fracture of 8.1%, based on the WHO FRAX algorithm. No significant bone loss was observed. Discussion: BONE DENSITY IS LOW AT ONE OR MORE SKELETAL SITES. This patient's lowest T-score is low at one or more skeletal sites. It meets the World Health Organization's (WHO) criteria for ?low bone mass? (T-score between -1.0 and -2.5). The patient's 10-year risk of fracture as calculated by FRAX is less than the threshold where pharmacological therapy is recommended by the National Osteoporosis Foundation (NOF). However, all treatment decisions require clinical judgment and consideration of individual patient factors, including patient preferences, comorbidities, previous drug use, risk factors not captured in the FRAX model (e.g., frailty, falls, vitamin D deficiency, increased bone turnover, interval significant decline in bone density) and possible under or overestimation of fracture risk by FRAX. The patient should follow a healthful lifestyle (good nutrition with adequate calcium and vitamin D, and appropriate weight-bearing exercise). Follow-Up: Consider repeating this study in 2 to 3 years to reassess this patient's status, or sooner if there is some new clinical indication. Reported by: GERTRUDE on 08/06/2024 10:19:00 AM. Reviewed, dictated and finalized at location AMeena CANELA
== END 2024-08-06 09:44 | disposition home or self-care (01) ==
LOC: ANHIMG 09:44
PROVIDERS: PCP Internal Medicine; Visit Provider Internal Medicine
DX: N95.1 Menopausal and female climacteric states (principal)
CPT/HCPCS: 77080